=== PATIENT | male | born 2000 | race Caucasian/White ===

== ENCOUNTER → 2023-07-31 17:21 | Outpatient (REF) | payer MEDICAID, SELFPAY ==
--- NOTE | 2023-07-31 17:46 | DI.RAD_ITS ---
Exam(s) XR WRIST RT COMPLETE EXAM: XR WRIST RT COMPLETE CLINICAL HISTORY: Pain in right wrist ICD-10:M25.531. TECHNIQUE: 2D digital imaging was performed of the right wrist. Three views were obtained. PA, lat eral and oblique views were obtained. COMPARISON: No exams were available for comparison FINDINGS: BONES: No acute fracture is present. No bony destructive lesion is seen. JOINTS: The carpal bones are normally aligned. SOFT TISSUE: Normal. IMPRESSION: Unremarkable radiographs of the right wrist. DATA REPOSITORY: RADIATION DOSE DELIVERED:
--- NOTE | 2023-07-31 17:46 | DI.RAD_ITS ---
Exam(s) XR ELBOW RT COMPLETE EXAM: XR ELBOW RT COMPLETE CLINICAL HISTORY: Pain in right elbow ICD-10:M25.521. TECHNIQUE: 2D digital imaging was performed of the left elbow. Three images were obtained. AP, lat eral and oblique views were obtained. COMPARISON: No exams were available for comparison FINDINGS: BONES: No acute fracture is present. No bony destructive lesion is seen. JOINTS: The elbow is normally aligned. No joint effusion is seen. SOFT TISSUE: Normal. IMPRESSION: Unremarkable radiographs of the right elbow. DATA REPOSITORY: RADIATION DOSE DELIVERED:
--- NOTE | 2023-07-31 18:20 | DI.VRAD_ITS ---
PROCEDURE INFORMATION: Exam: XR Right Elbow Exam date and time: 07/31/2023 5:42 PM Age: 23 years old Clinical indication: Elbow; Patient HX: Pain in right wrist. Patient states they fell 6 feet this morning and pain has not gone away. TECHNIQUE: Imaging protocol: Radiologic exam of the right elbow. Views: 3 or more views. COMPARISON: CR XR WRIST RT COMPLETE 07/31/2023 5:39 PM FINDINGS: Bones/joints: Osseous mineralization is normal. There are no inflammatory osseous erosive changes. The joint spaces are maintained without degenerative changes. There is no evidence of a joint effusion. No focal osseous lesions are identified. There are no acute displaced fractures or subluxations. Soft tissues: There is no soft tissue swelling or soft tissue air. IMPRESSION: No acute displaced fractures or subluxations identified. Dictated and Authenticated by: Enio Beck MD. Ordering:PHANI Muir MD
--- NOTE | 2023-07-31 18:20 | DI.VRAD_ITS ---
PROCEDURE INFORMATION: Exam: XR Right Wrist Exam date and time: 07/31/2023 5:39 PM Age: 23 years old Clinical indication: Patient HX: Patient states they fell 6 feet this morning and pain has not gone away. Pain in right wrist. TECHNIQUE: Imaging protocol: Radiologic exam of the right wrist. Views: 3 or more views. COMPARISON: No relevant prior studies available. FINDINGS: Bones/joints: There is mild ulnar minus variance. Osseous mineralization is normal. There are no inflammatory osseous erosive changes. The joint spaces are maintained without degenerative changes. The capitolunate angle measures approximately 37 degrees, which is mildly elevated, although the scapholunate angle is within normal limits. Findings could reflect some degree of ligamentous instability. There are no acute displaced fractures or subluxations. No osseous lesions are identified. Soft tissues: There is no soft tissue swelling or soft tissue air. IMPRESSION: 1. No acute displaced fractures or subluxations identified. 2. Findings which could represent some degree of ligamentous carpal instability, as described above. Recommend clinical correlation. Dictated and Authenticated by: Enio Beck MD. Ordering:PHANI Muir MD
== END ==
LOC: DI 17:21
PROVIDERS: Visit Provider Physician Assistant Medical
DX: M25.531 Pain in right wrist (principal); M25.521 Pain in right elbow
CPT/HCPCS: 73080; 73110